=== PATIENT | female | born 1950 | race Caucasian/White ===

== ENCOUNTER → 2016-07-16 | Outpatient (CLI) | payer OTHER, MEDICARE ==
[~2016-07-16] VITALS: Ht 165.1 cm; Wt 76.0 kg
[~2016-07-16] MED LIST: ANASTROZOLE1 MG PO; CALTRATE 600+D1 EAC1 PO; LEVOTHYROXINE50 MCG PO; NEXIUM20 MG PO; SYNTHROID75 MCG PO; TAMOXIFEN CITRA20 MG PO
[2016-07-16 09:53] VITALS: BP 142/88
== END | disposition home or self-care (01) ==
LOC: IVINF 06-21 15:00
DX: M81.0 Age-related osteoporosis without current pathological fracture (principal)
CPT/HCPCS: 96365; J3489

== ENCOUNTER → 2017-09-16 | Outpatient (CLI) | payer OTHER, MEDICARE ==
[~2017-09-16] VITALS: Ht 165.1 cm; Wt 79.0 kg
[~2017-09-16] MED LIST changes: +CENTRUM SILVER1 EAC4 PO; +ZOMETA4 MG/5 ML IV
[2017-09-16 10:29] VITALS: BP 124/80
== END | disposition home or self-care (01) ==
LOC: IVINF 09-12 15:00
DX: M81.0 Age-related osteoporosis without current pathological fracture (principal); Z87.19 Personal history of other diseases of the digestive system
CPT/HCPCS: 96365; J3489